=== PATIENT | male | born 1965 | race African-American/Black ===

== ENCOUNTER → 2020-09-02 | Outpatient (CLI) | payer OTHER ==
--- NOTE | 2020-09-02 13:36 | RAD ---
EXAM: XR KNEE_LT 1-2 VIEWS. HISTORY: Left knee pain. COMPARISON: None. FINDINGS: There is mild medial compartmental joint space narrowing and moderate osteophytosis. There are small osteophytes along the patellofemoral compartment. Meniscal chondrocalcinosis is noted. Ther e is no joint effusion. There is mild varus angulation. No fractures are identified. IMPRESSION: 1. Mild medial compartment predominant osteoarthritis. 2. Chondrocalcinosis of the menisci is usually a senescent finding. Correlate clinically to exclude d eposition diseases such as CPPD. Electronically signed by: Rich Torrez MD (09/02/2020 1:33 PM) [facility]
== END ==
LOC: RAD 12:58
PROVIDERS: ATTEND Family Medicine
DX: Z02.71 Encounter for disability determination (principal); M17.12 Unilateral primary osteoarthritis, left knee; M11.262 Other chondrocalcinosis, left knee; M25.762 Osteophyte, left knee; M25.862 Other specified joint disorders, left knee
CPT/HCPCS: 73560